=== PATIENT | male | born 1960 | race Caucasian/White ===

== ENCOUNTER 2017-06-25 00:49 | Emergency (ER) | payer OTHER, MEDICARE ==
[~2017-06-25] VITALS: Ht 185.4 cm; Wt 93.0 kg
[~2017-06-25 00:49] MED LIST: ASPI81CH PO; FISH OIL 1,0001 EAC1 PO; FURO20 PO; Gas-X80 MG PO; Hydrocodone-Ap1 EA23 PO; INSLI100I SC; INSULANPEN SC; LIDO5TP TOP; Lithium Carbon450 MG PO; MELA3 PO; METO10 PO; MIRT30 PO; NADO40 PO; ONDA4ODT MM; ONDA8 PO; PANT40 PO; PROM25 PO; Phenergan25 MG PR; SPIR25 PO; SPIR50 PO; SUCR1 PO
[2017-06-25 01:19] LABS: BASOPHILS ABSOLUTE AUTO 0.01 K/mm3 (0.00-0.23); BASOPHILS PERCENT AUTO 0 % (0-2); EOSINOPHILS PERCENT AUTO 3 % (0-6); Hematocrit 35.6 % (37.0-53.0); Hemoglobin 12.2 g/dL (13.5-17.5); IMMATURE GRAN ABSOLUTE AUTO 0.01 K/mm3 (0.00-0.10); IMMATURE GRAN PERCENT AUTO 0 % (0-1); LYMPHOCYTES ABSOLUTE AUTO 1.24 K/mm3 (0.84-5.20); LYMPHOCYTES PERCENT AUTO 20 % (21-46); MONOCYTES ABSOLUTE AUTO 0.57 K/mm3 (0.16-1.47); MONOCYTES PERCENT AUTO 9 % (4-13); Mean Corpuscular HGB 30.1 pg (26.0-34.0); Mean Corpuscular HGB Conc 34.3 g/dL (31.5-36.5); Mean Corpuscular Volume 88 fL (80-100); Mean Platelet Volume 11.9 fL (9.1-12.4); NEUTROPHILS ABSOLUTE AUTO 4.06 K/mm3 (1.96-9.15); NEUTROPHILS PERCENT AUTO 67 % (41-73); Platelet Count 94 K/mm3 (150-400); RDW Coefficient Variation 14.4 % (11.7-14.2); RDW Standard Deviation 46.6 fL (35.1-46.3); Red Blood Cell Count 4.05 M/mm3 (4.30-5.90); White Blood Cell Count 6.09 K/mm3 (4.00-11.30)
[2017-06-25 01:39] LABS: Alanine Aminotransfer (ALT/SGP 24 U/L (12-78); Albumin, Blood 3.9 g/dL (3.4-5.0); Albumin/Globulin Ratio 1.1 (0.8-1.8); Alk Phos 114 U/L (50-136); Anion Gap 8 mmol/L (6-16); Aspartate Aminotrans (AST/SGOT 23 U/L (12-37); Bilirubin, Total 0.9 mg/dL (0.1-1.0); Blood Urea Nitrogen 25 mg/dL (8-24); Bun/Creatinine Ratio 23.6 (12.0-20.0); CO2, Blood 28 mmol/L (21-32); Calcium, Blood 9.5 mg/dL (8.5-10.1); Chloride, Blood 108 mmol/L (98-108); Creatinine, Blood 1.06 mg/dL (0.60-1.20); Globulin, Blood 3.4 g/dL (2.2-4.0); Glomerular Filtration Rate >60 (60-); Glucose, Blood 198 mg/dL (70-99); Potassium, Blood 3.9 mmol/L (3.5-5.5); Sodium, Blood 144 mmol/L (136-145); Total Protein, Blood 7.3 g/dL (6.4-8.2); Troponin I <0.015 ng/mL (0.000-0.040)
[2017-07-16] MEDS ORDERED: Humalog100 UNIT/1 SC (08:41)
[2017-07-16] MEDS ORDERED: METOPROLOL PO (08:45)
[2017-10-27] MEDS ORDERED: Novolog100 UNIT/2 SC (02:44)
[2017-10-27] MEDS ORDERED: LIDO700A20 TOP (02:47)
[2017-10-27] MEDS ORDERED: Prinivil10 MG PO (02:48)
[2017-10-27] MEDS ORDERED: MELA3 PO (02:48)
[2017-10-27] MEDS ORDERED: METO10 PO ×2 (02:49→04:42)
[2017-10-27] MEDS ORDERED: SIME80CH PO (02:50)
[2017-10-27] MEDS ORDERED: MULTI VITAMIN1 EACH PO (02:50)
[2017-10-27] MEDS ORDERED: SPIR25 PO (02:51)
== END 2017-06-25 04:11 | disposition home or self-care (01) ==
LOC: ER 00:49
PROVIDERS: Emergency Medicine
DX: E11.43 Type 2 diabetes mellitus with diabetic autonomic (poly)neuropathy (principal); K31.84 Gastroparesis; I10 Essential (primary) hypertension; I25.2 Old myocardial infarction; E78.00 Pure hypercholesterolemia, unspecified; K21.9 Gastro-esophageal reflux disease without esophagitis; F31.9 Bipolar disorder, unspecified; R11.2 Nausea with vomiting, unspecified; R19.7 Diarrhea, unspecified; Z88.2 Allergy status to sulfonamides; Z88.8 Allergy status to other drugs, medicaments and biological substances; Z79.899 Other long term (current) drug therapy; Z79.82 Long term (current) use of aspirin; Z79.4 Long term (current) use of insulin; Z87.891 Personal history of nicotine dependence
CPT/HCPCS: 80053; 83690; 84484; 85025; 93005; 93010; 96361; 96365; 96375; 99283; J1630; J7030; J7050

== ENCOUNTER 2017-07-19 07:39 | Day surgery (SDC) | payer OTHER, MEDICARE ==
[~2017-07-19] VITALS: Ht 185.4 cm; Wt 93.9 kg
[~2017-07-19 07:39] MED LIST changes: +Humalog100 UNIT/1 SC; +METOPROLOL PO
[2017-10-27] MEDS ORDERED: Novolog100 UNIT/2 SC (02:44)
[2017-10-27] MEDS ORDERED: LIDO700A20 TOP (02:47)
[2017-10-27] MEDS ORDERED: MELA3 PO (02:48)
[2017-10-27] MEDS ORDERED: Prinivil10 MG PO (02:48)
[2017-10-27] MEDS ORDERED: METO10 PO ×2 (02:49→04:42)
[2017-10-27] MEDS ORDERED: SIME80CH PO (02:50)
[2017-10-27] MEDS ORDERED: MULTI VITAMIN1 EACH PO (02:50)
[2017-10-27] MEDS ORDERED: SPIR25 PO (02:51)
== END 2017-07-19 23:54 | disposition home or self-care (01) ==
LOC: ORSCMMR 07:39
PROVIDERS: Internal Medicine Gastroenterology
PROC: 0DJ08ZZ Inspection of Upper Intestinal Tract, Via Natural or Artificial Opening Endoscopic (ICD-10-PCS; principal; 2017-07-19 09:15)
DX: K92.1 Melena (principal); K76.6 Portal hypertension; K31.89 Other diseases of stomach and duodenum; I85.10 Secondary esophageal varices without bleeding; K21.9 Gastro-esophageal reflux disease without esophagitis; E11.9 Type 2 diabetes mellitus without complications; K70.31 Alcoholic cirrhosis of liver with ascites; Z86.19 Personal history of other infectious and parasitic diseases; I10 Essential (primary) hypertension; E78.00 Pure hypercholesterolemia, unspecified; G47.33 Obstructive sleep apnea (adult) (pediatric); Z87.891 Personal history of nicotine dependence; Z79.4 Long term (current) use of insulin; Z79.899 Other long term (current) drug therapy
CPT/HCPCS: 82947; J2250; J7120

== ENCOUNTER 2019-11-21 18:34 | Emergency (ER) | payer OTHER, MEDICARE ==
[~2019-11-21] VITALS: Ht 188 cm; Wt 84.8 kg
[~2019-11-21 18:34] MED LIST changes: +BASAGLAR K100 UNIT/1 SC; -INSULANPEN SC; +LIDO700A20 TOP; +MULTI VITAMIN1 EACH PO; +Novolog100 UNIT/2; +Prinivil10 MG PO; +SIME80CH PO
[2019-11-21 19:19] LABS: BASOPHILS ABSOLUTE AUTO 0.03 K/mm3 (0.00-0.23); BASOPHILS PERCENT AUTO 0 % (0-2); EOSINOPHILS PERCENT AUTO 6 % (0-6); Hematocrit 37.3 % (37.0-53.0); Hemoglobin 11.7 g/dL (13.5-17.5); IMMATURE GRAN ABSOLUTE AUTO 0.02 K/mm3 (0.00-0.10); IMMATURE GRAN PERCENT AUTO 0 % (0-1); LYMPHOCYTES ABSOLUTE AUTO 1.39 K/mm3 (0.84-5.20); LYMPHOCYTES PERCENT AUTO 17 % (21-46); MONOCYTES ABSOLUTE AUTO 0.63 K/mm3 (0.16-1.47); MONOCYTES PERCENT AUTO 8 % (4-13); Mean Corpuscular HGB 28.7 pg (26.0-34.0); Mean Corpuscular HGB Conc 31.4 g/dL (31.5-36.5); Mean Corpuscular Volume 91 fL (80-100); NEUTROPHILS ABSOLUTE AUTO 5.66 K/mm3 (1.96-9.15); NEUTROPHILS PERCENT AUTO 69 % (41-73); Platelet Count 89 K/mm3 (150-400); RDW Coefficient Variation 15.3 % (11.7-14.2); RDW Standard Deviation 51.5 fL (35.1-46.3); Red Blood Cell Count 4.08 M/mm3 (4.30-5.90); White Blood Cell Count 8.23 K/mm3 (4.00-11.30)
[2019-11-21 19:24] LABS: Mean Platelet Volume 13.4 fL (9.1-12.4)
[2019-11-21 19:39] LABS: Alanine Aminotransfer (ALT/SGP 64 U/L (12-78); Albumin, Blood 3.8 g/dL (3.4-5.0); Albumin/Globulin Ratio 1.1 (0.8-1.8); Alk Phos 122 U/L (50-136); Anion Gap 8 mmol/L (6-16); Aspartate Aminotrans (AST/SGOT 44 U/L (12-37); Bilirubin, Total 1.1 mg/dL (0.1-1.0); Blood Urea Nitrogen 19 mg/dL (8-24); Bun/Creatinine Ratio 16.2 (12.0-20.0); CO2, Blood 23 mmol/L (21-32); Calcium, Blood 8.9 mg/dL (8.5-10.1); Chloride, Blood 112 mmol/L (98-108); Creatinine, Blood 1.17 mg/dL (0.60-1.20); Globulin, Blood 3.4 g/dL (2.2-4.0); Glomerular Filtration Rate >60 (60-); Glucose, Blood 138 mg/dL (70-99); Potassium, Blood 3.8 mmol/L (3.5-5.5); Sodium, Blood 143 mmol/L (136-145); Total Protein, Blood 7.2 g/dL (6.4-8.2)
[2019-11-21] MEDS ORDERED: ONDA4ODT MM (20:47)
== END 2019-11-21 21:04 | disposition home or self-care (01) ==
LOC: ER 18:34
PROVIDERS: Emergency Medicine
DX: K31.84 Gastroparesis (principal); Z88.2 Allergy status to sulfonamides; Z88.8 Allergy status to other drugs, medicaments and biological substances; Z79.4 Long term (current) use of insulin; Z79.899 Other long term (current) drug therapy; E11.9 Type 2 diabetes mellitus without complications; I25.2 Old myocardial infarction; I10 Essential (primary) hypertension; E78.00 Pure hypercholesterolemia, unspecified; K21.9 Gastro-esophageal reflux disease without esophagitis; Z86.19 Personal history of other infectious and parasitic diseases; Z87.891 Personal history of nicotine dependence; K31.89 Other diseases of stomach and duodenum
CPT/HCPCS: 80053; 82947; 83690; 85025; 96361; 96374; 96375; 99283-25; J1630; J2405; J2765; J7030